=== PATIENT | female | born 1950 | race Caucasian/White ===

== ENCOUNTER 2018-02-10 15:06 | Emergency (ER) | payer OTHER, MEDICARE ==
[~2018-02-10] VITALS: Ht 162.6 cm; Wt 83.9 kg
[~2018-02-10 15:06] MED LIST: LOSARTAN POTASS25 MG PO; POLYTRIM O200 GTT/BO OPH; POLYTRIM O200 GTT/BO TOP; PREDNISONE10 MG PO; TIMOLOL MALEATE10 MG PO
[2018-02-10] MEDS ORDERED: ATORVASTATIN CA10 M1 PO (15:42)
[2018-02-10] MEDS ORDERED: LOSARTAN POTASS50 M1 PO (15:42)
[2018-02-10] MEDS ORDERED: VITAMIN E400 UNI2 PO (15:43)
[2018-02-10] MEDS ORDERED: TIMOLOL MALEATE PO (15:44)
--- NOTE | 2018-02-10 16:07 | ED GENERAL ADULT ---
History of Present Illness General Chief Complaint: General Adult Stated Complaint: PT HAS POSSIBLE POISION PETER ON THE FACE Source: patient Exam Limitations: no limitations Vital Signs & Intake/Output Vital Signs & Intake/Output Vital Signs Date Time Temp Pulse Resp B/P B/P Pulse O2 O2 Flow FiO2 Mean Ox Delivery Rate 02/10 1624 97.9 66 16 127/59 98 Room Air 02/10 1516 98.0 65 20 133/84 97 Room Air Allergies Coded Allergies: pistachio nut (Severe, RASH, THROAT SWELLING 02/10/18) poison peter extract (RASH 02/10/18) Reconcile Medications Atorvastatin Calcium 10 MG TABLET 1 TAB PO DAILY CHOLESTEROL (Reported) Hydroxyzine Hydrochloride (Atarax) 25 MG TAB 1 TAB PO Q12 PRN ITCHING Losartan Potassium 50 MG TABLET 1 TAB PO DAILY HEART (Reported) Methylprednisolone. (Medrol) 4 MG TAB.DS.PK 1 DP PO AD poison peter 6 on day 1 then reduce by one tablet daily until gone Timolol Maleate 10 MG TABLET 1 TAB PO QPM UNKNOWN (Reported) Vitamin E Mixed (Vitamin E) 400 UNIT TABLET 1 TAB PO DAILY VITAMIN SUPPORT ( Reported) Triage Note: POISON PETER ON FACE FROM WORKING IN YARD YESTERDAY. STATES IT'S COMING CLOSE TO HER EYES Triage Nurses Notes Reviewed? yes Onset: Abrupt Duration: day(s): Timing: recent history HPI: 02/10/18 59-year-old female presents to the emergency department for facial rash. The patient has a history of severe poison peter. She says she the rash started on her face after gardening. She was gardening yesterday and developed a similar rash today. She has erythema and itching just below her left eye. She has no ocular complaints at this time. She also has facial itching and erythema. She also has itching to her legs. Past History Travel History Traveled to [place] past 21 day No Medical History Any Pertinent Medical History? see below for history Neurological: TIA EENT: NONE Cardiovascular: hypertension, hyperlipidemia Respiratory: NONE Gastrointestinal: NONE Hepatic: NONE Renal: NONE Musculoskeletal: NONE Psychiatric: NONE Endocrine: NONE Blood Disorders: NONE Cancer(s): NONE [employer]/Reproductive: NONE History of MRSA: No History of VRE: No History of CDIFF: No Surgical History Surgical History: N Psychosocial History Who do you live with Spouse What is your primary language [place] Tobacco Use: Never used ETOH Use: denies use Illicit Drug Use: denies illicit drug use Family History Hx Contributory? No Review of Systems Review of Systems Constitutional: Denies: fever. EENTM: Denies: visual changes. Respiratory: Denies: short of breath. Cardiovascular: Denies: chest pain. GI: Denies: abdominal pain. Genitourinary: Reports: no symptoms. Musculoskeletal: Reports: no symptoms. Skin: Reports: see HPI. Neurological/Psychological: Reports: no symptoms. Hematologic/Endocrine: Reports: no symptoms. Immunologic/Allergic: Reports: no symptoms. Physical Exam Physical Exam General Appearance: alert, awake, anxious, mild distress Head: atraumatic Eyes: Bilateral: normal appearance, PERRL, EOMI. Ears, Nose, Throat: normal pharynx Neck: normal inspection, supple, full range of motion Respiratory: normal breath sounds, chest non-tender, no respiratory distress Cardiovascular: regular rate/rhythm Peripheral Pulses: 4+ radial (R), 4+ radial (L) Back: normal range of motion Extremities: no edema Neurologic/Psych: no motor/sensory deficits, awake, alert, oriented x 3 Skin: rash Core Measures ACS in differential dx? No CVA/TIA Diagnosis: No Sepsis Present: No Sepsis Focused Exam Completed? No Progress Differential Diagnoses I considered the following diagnoses in my evaluation of the patient: [Poison peter, cellulitis, contact dermatitis] Plan of Care: Follow-up with her doctor next week if not all better. Initial ED EKG: none Departure Departure Disposition: HOME OR SELF CARE Condition: Stable Clinical Impression Primary Impression: Poison peter dermatitis Referrals: Rogers Chacko MD (PCP/Family) Departure Forms: Customer Survey General Discharge Information Prescriptions: Current Visit Scripts Methylprednisolone. (Medrol) 1 DP PO AD #1 DP 6 on day 1 then reduce by one tablet daily until gone Hydroxyzine Hydrochloride (Atarax) 1 TAB PO Q12 PRN ITCHING #20 TAB Comments Follow-up with her doctor this week. Return to the emergency department if worse. The patient had minimal erythema to the left infraorbital area and erythema to bilateral cheeks. She says is highly periodic and consistent with her prior episodes of poison peter. Critical Care Note Critical Care Note Critical Care Time: non-applicable
[2018-02-10] MEDS ORDERED: MEDROL4 M2 PO (16:22)
[2018-02-10] MEDS ORDERED: HYDROXYZINE HCL25 M2 PO (16:23)
[2018-02-10 16:24] VITALS: BP 127/59
== END 2018-02-10 16:25 ==
LOC: ERH 15:06
DX: L23.7 Allergic contact dermatitis due to plants, except food (principal)